=== PATIENT | male | born 1965 | race Caucasian/White ===

== ENCOUNTER 2020-06-04 18:44 | Emergency (ER) | payer BC ==
[2020-06-04 18:53] VITALS: O2SAT 98
[2020-06-04] MEDS ORDERED: Cyclobenzaprine 10 MG PO ONE (19:21)
--- NOTE | 2020-06-04 19:21 | ERPHSYRPT ---
- History of Present Illness Time Seen by Provider: 06/04/20 19:05 Source: patient Exam Limitations: no limitations Patient Subjective Stated Complaint: PT states "I am not sure what I did but I think I got up wrong and twisted my back." Triage Nursing Assessment: Pt presented alert and oriented X 3, skin pwd Pt presented in a picker packer truck, had to be assisted out onto a wheelchair. Any time pt moves, right lower back spasm and pt would grunt and yell. Physician History: This is a 54-year-old white male who has a history of chronic intermittent back issues. Primarily twisting bending lifting causes, on occasion, significant localized pain. Prior to arrival, this afternoon, the patient got up out of a chair and twisted and had immediate sharp pain in the right lumbar area. His back is in a spasm. He did not fall. He has had no acute traumatic injury. He is not on any pain medication and he does not see a pain specialist. Timing/Duration: today Method of Injury: bending, twisted Quality: sharp, other (Spasms) Back Pain Location: lumbar spine, paraspinous muscles Severity of Pain-Max: moderate Severity of Pain-Current: mild Modifying Factors: Improves With: movement (Worsens) Associated Symptoms: muscle spasms (Region of the right paraspinous muscles) Previous symptoms: same symptoms as today Allergies/Adverse Reactions: levofloxacin [From Levaquin] Allergy (Intermediate, Verified 10/07/13 10:31) Rash red blotches Home Medications: Aspirin 81 mg PO DAILY 10/07/13 [History] Burtrum-3 Fatty Acids/Fish Oil [Fish Oil 1,000 mg Softgel] 1 each PO DAILY 10/07/13 [History] Quinapril HCl [Accupril] 20 mg PO DAILY 10/07/13 [History] Simvastatin 40 mg [Zocor 40 mg] 40 mg PO DAILY 10/07/13 [History] Hx Tetanus, Diphtheria Vaccination/Date Given: No Hx Influenza Vaccination/Date Given: Yes Hx Pneumococcal Vaccination/Date Given: No Immunizations Up to Date: Yes Travel Risk - International Travel Have you traveled outside of the country in past 3 weeks: No - Coronavirus Screening Are you exhibiting any of the following symptoms?: No Close contact with a COVID-19 positive Pt in past 14-21 Days: No - Review of Systems Constitutional: No Symptoms Eyes: No Symptoms Ears, Nose, & Throat: No Symptoms Respiratory: No Symptoms Cardiac: No Symptoms Abdominal/Gastrointestinal: No Symptoms Genitourinary Symptoms: No Symptoms Musculoskeletal: Back Pain Skin: No Symptoms Neurological: No Symptoms Psychological: No Symptoms Endocrine: No Symptoms Hematologic/Lymphatic: No Symptoms Immunological/Allergic: No Symptoms All Other Systems: Reviewed and Negative - Past Medical History Pertinent Past Medical History: Yes Neurological History: No Pertinent History ENT History: No Pertinent History Cardiac History: High Cholesterol, Hypertension Respiratory History: No Pertinent History Endocrine Medical History: No Pertinent History Musculoskeletal History: No Pertinent History GI Medical History: No Pertinent History History: No Pertinent History Psycho-Social History: No Pertinent History Male Reproductive Disorders: No Pertinent History - Past Surgical History Past Surgical History: Yes Neuro Surgical History: No Pertinent History Cardiac: No Pertinent History Respiratory: No Pertinent History Gastrointestinal: No Pertinent History Genitourinary: No Pertinent History Musculoskeletal: Other Male Surgical History: No Pertinent History Other Surgical History: sinus surgery - Social History Smoking Status: Never smoker Exposure to second hand smoke: No Drug Use: none Patient Lives Alone: Yes - Nursing Vital Signs Nursing Vital Signs: Initial Vital Signs Temperature 97.4 F 06/04/20 18:44 Pulse Rate 84 06/04/20 18:44 Respiratory Rate 22 06/04/20 18:44 Blood Pressure 180/89 06/04/20 18:44 O2 Sat by Pulse Oximetry 98 06/04/20 18:44 Pain Scale Pain Intensity [Right Lower 8 Back] Pain Intensity 8 - Physical Exam General Appearance: no apparent distress, alert, anxiety Eye Exam: PERRL/EOMI, eyes nml inspection Ears, Nose, Throat Exam: normal ENT inspection, moist mucous membranes Neck Exam: normal inspection, non-tender, supple, full range of motion Respiratory Exam: airway intact, No chest tenderness, No respiratory distress Gastrointestinal Exam: No tenderness Rectal Exam: not done Back Exam: muscle spasm (Right paraspinous muscle level of the lumbar spine), No vertebral tenderness Extremity Exam: normal inspection, normal range of motion, pelvis stable Neurologic Exam: alert, oriented x 3, cooperative, 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 You may also use a heating pad to the area 3 times a day but not directly on your skin at a moderate setting. Follow-up with your primary care doctor for further management of your symptoms. Prescriptions: Carisoprodol 350 mg [Soma 350 mg] 350 mg PO Q8H PRN PRN #10 tablet PRN Reason: Muscle Spasms Prednisone 10 mg [Deltasone 10 mg] 10 mg PO TID #12 tablet
[2020-06-04] MEDS ORDERED: PERCOCET TABLET 5/325MG PO STA (19:22)
[2020-06-04] MEDS ORDERED: PERCOCET TABLET 5/325MG ONE (19:25)
[2020-06-04] MEDS ORDERED: Cyclobenzaprine 10 MG ONE (19:25)
[2020-06-04] MEDS ORDERED: DELTASONE 20 MG ONE (19:25)
[2020-06-04] MEDS ORDERED: Ativan 2 MG/1 ML VIAL IM ONE (20:34)
[2020-06-04] MEDS ORDERED: Ativan 2 MG/1 ML VIAL ONE (20:39)
[2020-06-04] MEDS ORDERED: Lidoderm Patch 5% TOP ONE (21:30)
[2020-06-04] MEDS ORDERED: Lidoderm Patch 5% ONE (21:32)
[2020-06-04 21:50] VITALS: BP 158/87; PULSE 82
[2020-06-05] MEDS ORDERED: DELTASONE 20 MG PO ONE (19:21)
== END 2020-06-04 21:49 | disposition home or self-care (01) ==
LOC: ED 18:44
DX: M54.9 Dorsalgia, unspecified (principal); Z79.899 Other long term (current) drug therapy; X50.9XXA Other and unspecified overexertion or strenuous movements or postures, initial encounter; E78.00 Pure hypercholesterolemia, unspecified; I10 Essential (primary) hypertension
CPT/HCPCS: 96372; 99284; J2060; A9270-GY

== ENCOUNTER 2020-08-23 12:11 | Observation (INO) | payer BC ==
[2020-08-23] MEDS ORDERED: Sodium Chloride 0.9% 1000 ML 1,000 ML IV STA (12:47)
--- NOTE | 2020-08-23 12:54 | ERPHSYRPT ---
- History of Present Illness Time Seen by Provider: 08/23/20 12:38 Source: patient Exam Limitations: no limitations Patient Subjective Stated Complaint: pt states that he has been sick for 2+ weeks and his doctor thinks that it is all associated with his sinuses due to he has continuing issues, has been on antibiotics and steroids Triage Nursing Assessment: Pt c/o cough with thick white sputum, fatigue, body aches, night sweats and chills, hypertensive, denies pain, scheduled for sinus surgery in 2 weeks, doesn't appear to be in any distress Physician History: 54 years old with history of chronic sinus problems presented in the ER with chief complaint of flulike symptoms with cough congestion body aches, nasal d rainage with shortness of breath. Patient report he has been evaluated outpatient and has finished a course of Z-Bryce and steroid but her symptoms are recurring. Reports while taking steroids he had a feeling as if he was improving. Patient was recommended follow-up with ENT at [place]. Patient complains of feeling fatigued tired with no energy and totally drained out with minimal activity with some shortness of breath on exertion. Denies any chest pain but has some soreness because of coughing. Coughing up clear mucus. Timing/Duration: week(s) (2), constant, gradual onset, worse Cough Quality/Degree: moderate, productive cough, sputum Modifying Factors: Worsens With: coughing, exertion Associated Symptoms: chills, chest pain/soreness, cough, facial pain, headache, muscle aches, nasal congestion, nasal drainage, shortness of breath, sinus infection Allergies/Adverse Reactions: levofloxacin [From Levaquin] Allergy (Intermediate, Verified 08/23/20 12:24) Rash red blotches Home Medications: Quinapril HCl [Accupril] 20 mg PO DAILY 10/07/13 [History] Simvastatin 40 mg [Zocor 40 mg] 40 mg PO DAILY 10/07/13 [History] Fluticasone/Vilanterol [Breo Ellipta 100-25 Mcg INH] 1 inh PO UD PRN 08/23/20 [History] Hx Tetanus, Diphtheria Vaccination/Date Given: No Hx Influenza Vaccination/Date Given: Yes Hx Pneumococcal Vaccination/Date Given: No Travel Risk - International Travel Have you traveled outside of the country in past 3 weeks: No - Coronavirus Screening Symptoms: Shortness of Breath, Headaches/Body Aches/Fatigue Close contact with a COVID-19 positive Pt in past 14-21 Days: No - Review of Systems Constitutional: Fatigue, Malaise Eyes: No Symptoms Ears, Nose, & Throat: Nose Congestion, Sinus Drainage, Throat Swelling Respiratory: Cough, Dyspnea Cardiac: No Symptoms Abdominal/Gastrointestinal: No Symptoms Genitourinary Symptoms: No Symptoms Musculoskeletal: Myalgias Skin: No Symptoms Neurological: No Symptoms Psychological: No Symptoms Endocrine: No Symptoms Hematologic/Lymphatic: No Symptoms Immunological/Allergic: No Symptoms - Past Medical History Pertinent Past Medical History: Yes Neurological History: No Pertinent History ENT History: No Pertinent History Cardiac History: High Cholesterol, Hypertension Respiratory History: No Pertinent History Endocrine Medical History: No Pertinent History Musculoskeletal History: No Pertinent History GI Medical History: No Pertinent History History: No Pertinent History Psycho-Social History: No Pertinent History Male Reproductive Disorders: No Pertinent History - Past Surgical History Past Surgical History: Yes Neuro Surgical History: No Pertinent History Cardiac: No Pertinent History Respiratory: No Pertinent History Gastrointestinal: No Pertinent History Genitourinary: No Pertinent History Musculoskeletal: Other Male Surgical History: No Pertinent History Other Surgical History: sinus surgery - Social History Smoking Status: Never smoker Exposure to second hand smoke: No Drug Use: none Patient Lives Alone: Yes - Nursing Vital Signs Nursing Vital Signs: Initial Vital Signs Temperature 98.2 F 08/23/20 12:15 Pulse Rate 78 08/23/20 12:15 Respiratory Rate 17 08/23/20 12:15 Blood Pressure 142/74 08/23/20 12:15 O2 Sat by Pulse Oximetry 96 08/23/20 12:15 Pain Scale Pain Intensity 0 - Physical Exam General Appearance: no apparent distress Eye Exam: PERRL/EOMI, eyes nml inspection Ears, Nose, Throat Exam: pharyngeal erythema Neck Exam: normal inspection, non-tender, supple, full range of motion Respiratory Exam: normal breath sounds (The days 12:29:59), lungs clear Cardiovascular Exam: regular rate/rhythm, normal heart sounds Gastrointestinal/Abdomen Exam: soft, normal bowel sounds, No tenderness Back Exam: normal inspection, normal range of motion Extremity Exam: normal inspection, normal range of motion, pelvis stable Neurologic Exam: alert, oriented x 3, cooperative, 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, normal mood/affect, nml cerebellar function, nml station & gait, sensation nml Skin Exam: normal color SpO2 Interpretation: normal SpO2: 96 O2 Delivery: Room Air - Course Nursing assessment & vital signs reviewed: Yes EKG Interpreted by Me: RATE (72), Sinus Rhythm, NORMAL AXIS, NORMAL INTERVALS, NORMAL QRS Ordered Tests: Active Orders 24 hr Category Date Time Status EKG-ER Only STAT Care 08/23/20 12:47 Active IV Insertion STAT Care 08/23/20 12:47 Active CHEST 1 VIEW (PORTABLE) Stat Exams 08/23/20 13:11 Completed BLOOD CULTURE Stat Lab 08/23/20 13:10 Received CBC W DIFF Stat Lab 08/23/20 12:45 Completed CMP Stat Lab 08/23/20 12:45 Completed D-DIMER QUANTITATIVE Stat Lab 08/23/20 12:45 Completed Lactic Acid Stat Lab 08/23/20 12:47 Ordered MAG [MAGNESIUM] Stat Lab 08/23/20 12:48 Completed TROPONIN Q3H Lab 08/23/20 12:45 Completed TROPONIN Q3H Lab 08/23/20 16:30 Completed TROPONIN Q3H Lab 08/23/20 19:00 Ordered TROPONIN Q3H Lab 08/23/20 22:00 Ordered TROPONIN Q3H Lab 08/24/20 01:00 Ordered UA W/RFX UR CULTURE Stat Lab 08/23/20 15:26 Completed Respiratory Therapy Assessment DAILY RT 08/23/20 14:09 Active Medication Summary Generic Name Dose Route Start Last Admin Trade Name Freq PRN Reason Stop Dose Admin Enoxaparin Sodium 40 mg 08/23/20 18:40 Enoxaparin Sodium SQ 08/23/20 18:41 STAT ONE Doxycycline Hyclate 100 mg/ 100 mls @ 100 mls/hr 08/23/20 22:00 08/23/20 14:41 Dextrose IV 09/22/20 21:59 100 mls/hr Q12HT JULIET Administration Remdesivir 200 mg/ Sodium 250 mls @ 125 mls/hr 08/23/20 18:40 Chloride IV 08/23/20 20:39 ONCE ONE Discontinued Medications Generic Name Dose Route Start Last Admin Trade Name Freq PRN Reason Stop Dose Admin Albuterol/Ipratropium 3 ml 08/23/20 13:56 08/23/20 14:08 Duoneb 0.5-3 Mg/3 Ml Neb IH 08/23/20 13:57 3 ml STAT ONE Administration Albuterol/Ipratropium Confirm 08/23/20 14:03 Duoneb 0.5-3 Mg/3 Ml Neb Administered 08/23/20 14:04 Dose 3 ml IH .STK-MED ONE Dexamethasone Sodium Phosphate 6 mg 08/23/20 13:56 08/23/20 14:15 Decadron 10mg Inj. IV 08/23/20 13:57 6 mg STAT ONE Administration Dexamethasone Sodium Phosphate Confirm 08/23/20 14:13 Decadron 10mg Inj. Administered 08/23/20 14:14 Dose 10 mg .ROUTE .STK-MED ONE Doxycycline Hyclate Confirm 08/23/20 14:39 Vibramycin 100 Mg Administered 08/23/20 14:40 Dose 100 mg IV .STK-MED ONE Sodium Chloride 1,000 mls @ 999 mls/hr 08/23/20 12:47 08/23/20 14:18 Sodium Chloride 0.9% 1000 Ml IV 08/23/20 13:47 Infused .Q1H1M STA Infusion Sodium Chloride Confirm 08/23/20 13:07 Sodium Chloride 0.9% 1000 Ml Administered 08/23/20 13:08 Dose 1,000 mls @ ud .ROUTE .STK-MED ONE Ceftriaxone Sodium/Dextrose 1 g in 50 mls @ 100 mls/hr 08/23/20 13:55 08/23/20 15:15 Rocephin 1 Gm-D5w 50 Ml Bag IV 08/23/20 14:24 Infused STAT STA Infusion Ceftriaxone Sodium/Dextrose Confirm 08/23/20 14:13 Rocephin 1 Gm-D5w 50 Ml Bag Administered 08/23/20 14:14 Dose 1 g in 50 mls @ ud IV .STK-MED ONE Dextrose Confirm 08/23/20 14:40 D5w 100ml Mini Bag 100 Ml Administered 08/23/20 14:41 Dose 100 mls @ ud IV .STK-MED ONE Lab/Rad Data: Laboratory Result Diagrams 08/23/20 12:45 08/23/20 12:45 Laboratory Results 08/23/20 08/23/20 08/23/20 Range/Units 17:43 16:30 15:26 WBC (4.0-10.5) K/mm3 RBC (4.1-5.6) M/mm3 Hgb (12.5-18.0) gm/dl Hct (42-50) % MCV (78-100) fl MCH (26-32) pg MCHC (32-36) g/dl RDW (11.5-14.0) % Plt Count (150-450) K/mm3 MPV (7.5-11.0) fl Gran % (36.0-66.0) % Eos # (Auto) (0-0.5) Absolute Lymphs (auto) (1.0-4.6) Absolute Monos (auto) (0.0-1.3) Lymphocytes % (24.0-44.0) % Monocytes % (0.0-12.0) % Eosinophils % (0.00-5.0) % Basophils % (0.0-0.4) % Absolute Granulocytes (1.4-6.9) Basophils # (0-0.4) D-Dimer (215-500) ng/mL Sodium (137-145) mmol/L Potassium (3.5-5.1) mmol/L Chloride (98-107) mmol/L Carbon Dioxide (22-30) mmol/L Anion Gap (5-15) MEQ/L BUN (9-20) mg/dL Creatinine (0.66-1.25) mg/dL Estimated GFR ML/MIN Glucose (74-106) mg/dL Calcium (8.4-10.2) mg/dL Magnesium (1.6-2.3) mg/dL Total Bilirubin (0.2-1.3) mg/dL AST (17-59) U/L ALT (0-50) U/L Alkaline Phosphatase (38-126) U/L Troponin I < 0.012 (0.000-0.034) ng/mL Serum Total Protein (6.3-8.2) g/dL Albumin (3.5-5.0) g/dL Urine Color YELLOW (YELLOW) Urine Appearance CLEAR (CLEAR) Urine pH 7.0 (5-6) Ur Specific [place] 1.015 (1.005-1.025) Urine Protein NEGATIVE (Negative) Urine Ketones NEGATIVE (NEGATIVE) Urine Blood NEGATIVE (0-5) [place]/ul Urine Nitrite NEGATIVE (NEGATIVE) Urine Bilirubin NEGATIVE (NEGATIVE) Urine Urobilinogen NEGATIVE (0-1) mg/dL Ur Leukocyte Esterase NEGATIVE (NEGATIVE) Urine WBC (Auto) NONE (0-5) /HPF Urine RBC (Auto) NONE (0-2) /HPF U Epithel Cells (Auto) NONE (FEW) /HPF Urine Bacteria (Auto) NONE (NEGATIVE) /HPF Urine Mucus (Auto) SLIGHT (NEGATIVE) /HPF Urine Culture Reflexed NO (NO) Urine Glucose NEGATIVE (NEGATIVE) mg/dL SARS-CoV-2 (PCR) POSITIVE A (NEGATIVE) 08/23/20 08/23/20 08/23/20 Range/Units 12:48 12:45 12:45 WBC (4.0-10.5) K/mm3 RBC (4.1-5.6) M/mm3 Hgb (12.5-18.0) gm/dl Hct (42-50) % MCV (78-100) fl MCH (26-32) pg MCHC (32-36) g/dl RDW (11.5-14.0) % Plt Count (150-450) K/mm3 MPV (7.5-11.0) fl Gran % (36.0-66.0) % Eos # (Auto) (0-0.5) Absolute Lymphs (auto) (1.0-4.6) Absolute Monos (auto) (0.0-1.3) Lymphocytes % (24.0-44.0) % Monocytes % (0.0-12.0) % Eosinophils % (0.00-5.0) % Basophils % (0.0-0.4) % Absolute Granulocytes (1.4-6.9) Basophils # (0-0.4) D-Dimer 290 (215-500) ng/mL Sodium (137-145) mmol/L Potassium (3.5-5.1) mmol/L Chloride (98-107) mmol/L Carbon Dioxide (22-30) mmol/L Anion Gap (5-15) MEQ/L BUN (9-20) mg/dL Creatinine (0.66-1.25) mg/dL Estimated GFR ML/MIN Glucose (74-106) mg/dL Calcium (8.4-10.2) mg/dL Magnesium 2.0 (1.6-2.3) mg/dL Total Bilirubin (0.2-1.3) mg/dL AST (17-59) U/L ALT (0-50) U/L Alkaline Phosphatase (38-126) U/L Troponin I < 0.012 (0.000-0.034) ng/mL Serum Total Protein (6.3-8.2) g/dL Albumin (3.5-5.0) g/dL Urine Color (YELLOW) Urine Appearance (CLEAR) Urine pH (5-6) Ur Specific [place] (1.005-1.025) Urine Protein (Negative) Urine Ketones (NEGATIVE) Urine Blood (0-5) Chandler/ul Urine Nitrite (NEGATIVE) Urine Bilirubin (NEGATIVE) Urine Urobilinogen (0-1) mg/dL Ur Leukocyte Esterase (NEGATIVE) Urine WBC (Auto) (0-5) /HPF Urine RBC (Auto) (0-2) /HPF U Epithel Cells (Auto) (FEW) /HPF Urine Bacteria (Auto) (NEGATIVE) /HPF Urine Mucus (Auto) (NEGATIVE) /HPF Urine Culture Reflexed (NO) Urine Glucose (NEGATIVE) mg/dL SARS-CoV-2 (PCR) (NEGATIVE) 08/23/20 08/23/20 Range/Units 12:45 12:45 WBC 8.8 (4.0-10.5) K/mm3 RBC 4.69 (4.1-5.6) M/mm3 Hgb 13.8 (12.5-18.0) gm/dl Hct 43.1 (42-50) % MCV 91.9 (78-100) fl MCH 29.4 (26-32) pg MCHC 32.0 (32-36) g/dl RDW 13.1 (11.5-14.0) % Plt Count 333 (150-450) K/mm3 MPV 10.1 (7.5-11.0) fl Gran % 71.3 H (36.0-66.0) % Eos # (Auto) 0.09 (0-0.5) Absolute Lymphs (auto) 1.32 (1.0-4.6) Absolute Monos (auto) 1.12 (0.0-1.3) Lymphocytes % 14.9 L (24.0-44.0) % Monocytes % 12.7 H (0.0-12.0) % Eosinophils % 1.0 (0.00-5.0) % Basophils % 0.1 (0.0-0.4) % Absolute Granulocytes 6.30 (1.4-6.9) Basophils # 0.01 (0-0.4) D-Dimer (215-500) ng/mL Sodium 140 (137-145) mmol/L Potassium 4.2 (3.5-5.1) mmol/L Chloride 104 (98-107) mmol/L Carbon Dioxide 25 (22-30) mmol/L Anion Gap 15.1 H (5-15) MEQ/L BUN 20 (9-20) mg/dL Creatinine 0.78 (0.66-1.25) mg/dL Estimated GFR > 60.0 ML/MIN Glucose 84 (74-106) mg/dL Calcium 9.1 (8.4-10.2) mg/dL Magnesium (1.6-2.3) mg/dL Total Bilirubin 1.00 (0.2-1.3) mg/dL AST 45 (17-59) U/L ALT 49 (0-50) U/L Alkaline Phosphatase 89 (38-126) U/L Troponin I (0.000-0.034) ng/mL Serum Total Protein 7.1 (6.3-8.2) g/dL Albumin 4.0 (3.5-5.0) g/dL Urine Color (YELLOW) Urine Appearance (CLEAR) Urine pH (5-6) Ur Specific [place] (1.005-1.025) Urine Protein (Negative) Urine Ketones (NEGATIVE) Urine Blood (0-5) [place]/ul Urine Nitrite (NEGATIVE) Urine Bilirubin (NEGATIVE) Urine Urobilinogen (0-1) mg/dL Ur Leukocyte Esterase (NEGATIVE) Urine WBC (Auto) (0-5) /HPF Urine RBC (Auto) (0-2) /HPF U Epithel Cells (Auto) (FEW) /HPF Urine Bacteria (Auto) (NEGATIVE) /HPF Urine Mucus (Auto) (NEGATIVE) /HPF Urine Culture Reflexed (NO) Urine Glucose (NEGATIVE) mg/dL SARS-CoV-2 (PCR) (NEGATIVE) - Progress Progress: improved, re-examined Air Movement: fair Progress Note: 08/23/20 18:[address] Goetz and patient is admitted. Recommended starting on remdesivir and Lovenox prophylactic dose. Line discussed with patient and he is agreeable with admission. Blood Culture(s) Obtained: Yes Antibiotics given: Yes Discussed with : Daniel Will see patient in: hospital (observation) Counseled pt/family regarding: lab results, diagnosis, rad results - Departure Departure Disposition: Observation Clinical Impression: COVID-19 Bilateral pneumonia Qualifiers: Pneumonia type: due to unspecified organism Lung location: unspecified part of lung Qualified Code(s): J18.9 - Pneumonia, unspecified organism Condition: Stable Critical Care Time: No Referrals: CAYETANO NATH MD [Primary Care Provider] -
[2020-08-23 13:00] LABS: BASOPHIL % 0.1 % (0.0-0.4); Basophil (Absolute #) 0.01 (0-0.4); Eosinophil (Absolute #) 0.09 (0-0.5); Hematocrit 43.1 % (42-50); Hemoglobin 13.8 gm/dl (12.5-18.0); Lymphocyte (Absolute #) 1.32 (1.0-4.6); Lymphocytes % 14.9 % (24.0-44.0); Mean Cell Volume 91.9 fl (78-100); Mean Corpuscular Hemoglobin 29.4 pg (26-32); Mean Platelet Volume 10.1 fl (7.5-11.0); Monocyte (Absolute #) 1.12 (0.0-1.3); Monocytes % 12.7 % (0.0-12.0); Neutrophil % 71.3 % (36.0-66.0); Platelet Count 333 K/mm3 (150-450); Red Blood Count 4.69 M/mm3 (4.1-5.6); Red Cell Distribution Width 13.1 % (11.5-14.0); White Blood Count 8.8 K/mm3 (4.0-10.5)
[2020-08-23 13:06] LABS: ALKALINE PHOSPHATASE 89 U/L (38-126); ANION GAP 15.1 MEQ/L (5-15); BLOOD UREA NITROGEN 20 mg/dL (9-20); CHLORIDE 104 mmol/L (98-107); Calcium 9.1 mg/dL (8.4-10.2); Carbon Dioxide 25 mmol/L (22-30); Creatinine 1 0.78 mg/dL (0.66-1.25); EST GLOMERULAR FILTRATION RATE > 60.0 ML/MIN; Glucose 84 mg/dL (74-106); Potassium 4.2 mmol/L (3.5-5.1); SGOT/AST 45 U/L (17-59); SGPT/ALT 49 U/L (0-50); SODIUM 140 mmol/L (137-145); Total Protein 7.1 g/dL (6.3-8.2)
[2020-08-23] MEDS ORDERED: Sodium Chloride 0.9% 1000 ML 1,000 ML ONE ×2 (13:07→21:12)
[2020-08-23] MEDS ORDERED: ROCEPHIN 1 Gm-D5w 50 ml Bag** 1 G/50 ML IVPB IV STA (13:55)
[2020-08-23] MEDS ORDERED: DUONEB 0.5-3 MG/3 ml Neb IH ONE ×2 (13:56→14:03)
[2020-08-23] MEDS ORDERED: DECADRON 10MG INJ. IV ONE (13:56)
[2020-08-23] MEDS ORDERED: ROCEPHIN 1 Gm-D5w 50 ml Bag** 1 G/50 ML IVPB IV ONE (14:13)
[2020-08-23] MEDS ORDERED: DECADRON 10MG INJ. ONE (14:13)
[2020-08-23] MEDS ORDERED: VIBRAMYCIN 100 MG IV ONE ×2 (14:39→23:59)
[2020-08-23] MEDS ORDERED: D5w 100ML Mini Bag 100 ML 100 ML IV ONE (14:40)
[2020-08-23 16:15] LABS: Appearance CLEAR (CLEAR); Bilirubin NEGATIVE (NEGATIVE); Blood NEGATIVE Ery/ul (0-5); Glucose NEGATIVE (NEGATIVE); Ketones NEGATIVE (NEGATIVE); Leukocyte Esterase NEGATIVE (NEGATIVE); Mucus SLIGHT /HPF (NEGATIVE); Nitrite NEGATIVE (NEGATIVE); Protein,Urine Dip NEGATIVE (Negative); Specific Gravity 1.015 (1.005-1.025); Urobilinogen NEGATIVE mg/dL (0-1)
--- NOTE | 2020-08-23 18:18 | XRAY ---
Indication: Cough. Suspect COVID 19. Comparison: None Portable chest demonstrates subtle patchy bilateral airspace disease without consolidation/large effusion. Remaining heart and bony thorax unremarkable.
[2020-08-23] MEDS ORDERED: REMDESIVIR 200 MG in Sodium Chloride 0.9% 250 ML 250 ML IV ONE (18:40)
[2020-08-23] MEDS ORDERED: ENOXAPARIN SODIUM SQ ONE ×2 (18:40→21:11)
[2020-08-23] MEDS ORDERED: VENTOLIN COMMON CANISTER IH SCH (19:13)
[2020-08-23] MEDS ORDERED: HUMALOG SQ PRN (19:13)
[2020-08-23] MEDS ORDERED: TYLENOL 325 MG PO PRN (19:13)
[2020-08-23] MEDS ORDERED: REMDESIVIR 100 MG in Sodium Chloride 0.9% 100 ML IVPB 100 ML IV SCH (19:13)
[2020-08-23] MEDS ORDERED: REMDESIVIR IV ONE (21:16)
[2020-08-23] MEDS ORDERED: Sodium Chloride 0.9% 250 ML 250 ML IV ONE (21:16)
[2020-08-23] MEDS ORDERED: REMDESIVIR 200 MG in Sodium Chloride 0.9% 500 ML 250 ML IV SCH (22:00)
[2020-08-23] MEDS ORDERED: VIBRAMYCIN 100 MG*** 100 MG in Dextrose 5%/Water IV Soln. 100ML PLUS BAG 100 ML IV SCH (22:00)
[2020-08-23] MEDS ORDERED: Sodium Chloride 0.9% 1000 ML 1,000 ML IV SCH (22:30)
[2020-08-24] MEDS ORDERED: D5w 100ML Mini Bag 100 ML 100 ML IV ONE (00:07)
[2020-08-24] MEDS: VIBRAMYCIN 100 MG*** 100 MG in Dextrose 5%/Water IV Soln. 100ML PLUS BAG 100 ML IV SCH ×2 (00:16→09:18)
[2020-08-24 05:28] LABS: Absolute Neutrophil Ct (ANC) 6.06 (1.4-6.9); BASOPHIL % 0.1 % (0.0-0.4); Basophil (Absolute #) 0.01 (0-0.4); Eosinophil (Absolute #) 0 (0-0.5); Hematocrit 40.4 % (42-50); Lymphocytes % 10.7 % (24.0-44.0); Mean Corpuscular Hemoglobin 29.3 pg (26-32); Mean Corpuscular Hgb Concent. 32.2 g/dl (32-36); Mean Platelet Volume 9.5 fl (7.5-11.0); Neutrophil % 81.2 % (36.0-66.0); Platelet Count 331 K/mm3 (150-450); Red Blood Count 4.44 M/mm3 (4.1-5.6); Red Cell Distribution Width 12.9 % (11.5-14.0); White Blood Count 7.5 K/mm3 (4.0-10.5)
[2020-08-24 05:43] LABS: ALBUMIN 3.7 g/dL (3.5-5.0); ALKALINE PHOSPHATASE 88 U/L (38-126); ANION GAP 11.6 MEQ/L (5-15); BLOOD UREA NITROGEN 18 mg/dL (9-20); CHLORIDE 106 mmol/L (98-107); Carbon Dioxide 26 mmol/L (22-30); Creatinine 1 0.74 mg/dL (0.66-1.25); EST GLOMERULAR FILTRATION RATE > 60.0 ML/MIN; Glucose 140 mg/dL (74-106); Potassium 4.4 mmol/L (3.5-5.1); SGOT/AST 25 U/L (17-59); SGPT/ALT 43 U/L (0-50); SODIUM 138 mmol/L (137-145)
[2020-08-24 05:53] LABS: INR 1.27 (0.8-3.0); PROTIME 14.4 SECONDS (8.83-12.87)
[2020-08-24 08:06] VITALS: BP 124/73
--- NOTE | 2020-08-24 08:54 | PCM.SSS ---
History of Present Illness - Chief Complaint Chief Complaint: covid History of Present Illness: is a 54 year old male who came to the ER yesterday, he states he was feeling dehydrated, his urine was concentrated and he has been sick for 2-3 weeks. He has had sinus congestion and drainage, was actually treated with a zpak as he has chronic sinusitis and is actually scheduled for a sinus surgery later this month. He had chills and subjective fever about a week or a week and a half ago, he has some mild cough. no vomiting, no diarrhea, no shortness of breath. his taste and smell are intact. - Review of Systems Constitutional: No Fever, No Chills Respiratory: No Cough, No Short Of Breath Cardiac: No Chest Pain, No Edema, No Syncope Abdominal/Gastrointestinal: No Abdominal Pain, No Nausea, No Vomiting, No Diarrhea All Other Systems: Reviewed and Negative Medications & Allergies Home Medications: Home Medication List Quinapril HCl [Accupril] 20 mg PO DAILY 10/07/13 [History Confirmed 08/23/20] Simvastatin 40 mg [Zocor 40 mg] 40 mg PO DAILY 10/07/13 [History Confirmed 08/23/20] Fluticasone/Vilanterol [Breo Ellipta 100-25 Mcg INH] 1 inh PO UD PRN 08/23/20 [History Confirmed 08/23/20] Dexamethasone 4 mg PO BID #10 tablet 08/24/20 [Rx] Allergies/Adverse Reactions: Allergies Allergy/AdvReac Type Severity Reaction Status Date / Time levofloxacin [From Levaquin] Allergy Intermediate Rash Verified 08/23/20 12:24 - Past Medical History Past Medical History: Yes Neurological History: No Pertinent History ENT History: No Pertinent History Cardiac History: High Cholesterol, Hypertension Respiratory History: Asthma Endocrine Medical History: No Pertinent History Musculoskelatal History: No Pertinent History GI Medical History: No Pertinent History History: No Pertinent History Pyscho-Social History: No Pertinent History Male Reproductive Disorders: No Pertinent History - Past Surgical History Past Surgical History: Yes Neuro Surgical History: No Pertinent History Cardiac History: No Pertinent History Respiratory Surgery: No Pertinent History GI Surgical History: No Pertinent History Genitourinary Surgical Hx: No Pertinent History Musculskeletal Surgical Hx: Other Male Surgical History: No Pertinent History Other Surgical History: sinus surgery - Social History Smoking Status: Never smoker Exposure to second hand smoke: No Alcohol: None Drug Use: none - Physical Exam Vital Signs: Vital Signs - 24 hr Temp Pulse Resp BP Pulse Ox 08/24/20 08:33 20 08/24/20 08:00 98.1 F 54 L 20 124/73 96 08/24/20 07:04 74 16 95 08/24/20 06:50 18 08/24/20 05:45 97.6 F 67 18 120/62 96 08/24/20 05:00 14 08/24/20 04:00 42 L 14 95 08/24/20 03:00 16 08/24/20 01:59 44 L 16 91 L 08/24/20 01:00 12 08/24/20 00:00 97.5 F 63 12 105/58 08/23/20 22:45 14 08/23/20 22:00 98.0 F 55 L 14 117/69 95 08/23/20 20:58 16 08/23/20 20:15 98.3 F 68 14 139/77 94 L 08/23/20 19:59 73 12 95 08/23/20 19:14 12 08/23/20 19:13 98.3 F 68 14 139/77 94 L 08/23/20 18:42 96 08/23/20 18:04 81 20 139/62 94 L 08/23/20 17:02 82 20 128/73 96 08/23/20 16:19 77 20 128/73 95 08/23/20 15:29 79 25 H 144/85 97 08/23/20 14:22 79 16 98 08/23/20 14:03 71 25 H 142/74 98 08/23/20 13:15 75 23 142/74 98 08/23/20 12:15 98.2 F 78 15 142/74 62 L General Appearance: no apparent distress, alert Eye Exam: PERRL/EOMI, eyes nml inspection Respiratory Exam: normal breath sounds, lungs clear, No respiratory distress Cardiovascular Exam: regular rate/rhythm, normal heart sounds, normal peripheral pulses Gastrointestinal/Abdomen Exam: soft, normal bowel sounds, No tenderness, No mass Extremity Exam: normal inspection, normal range of motion, pelvis stable Skin Exam: normal color, warm, dry, No rash Results - Labs Lab/Micro Results: Lab Results-Last 24 Hours 08/23/20 08/23/2021 Range/Units 12:45 12:45 12:45 WBC 8.8 (4.0-10.5) K/mm3 RBC 4.69 (4.1-5.6) M/mm3 Hgb 13.8 (12.5-18.0) gm/dl Hct 43.1 (42-50) % MCV 91.9 (78-100) fl MCH 29.4 (26-32) pg MCHC 32.0 (32-36) g/dl RDW 13.1 (11.5-14.0) % Plt Count 333 (150-450) K/mm3 MPV 10.1 (7.5-11.0) fl Gran % 71.3 H (36.0-66.0) % Eos # (Auto) 0.09 (0-0.5) Absolute Lymphs (auto) 1.32 (1.0-4.6) Absolute Monos (auto) 1.12 (0.0-1.3) Lymphocytes % 14.9 L (24.0-44.0) % Monocytes % 12.7 H (0.0-12.0) % Eosinophils % 1.0 (0.00-5.0) % Basophils % 0.1 (0.0-0.4) % Absolute Granulocytes 6.30 (1.4-6.9) Basophils # 0.01 (0-0.4) PT (8.83-12.87) SECONDS INR (0.8-3.0) D-Dimer (215-500) ng/mL Sodium 140 (137-145) mmol/L Potassium 4.2 (3.5-5.1) mmol/L Chloride 104 (98-107) mmol/L Carbon Dioxide 25 (22-30) mmol/L Anion Gap 15.1 H (5-15) MEQ/L BUN 20 (9-20) mg/dL Creatinine 0.78 (0.66-1.25) mg/dL Estimated GFR > 60.0 ML/MIN Glucose 84 (74-106) mg/dL Calcium 9.1 (8.4-10.2) mg/dL Magnesium (1.6-2.3) mg/dL Total Bilirubin 1.00 (0.2-1.3) mg/dL AST 45 (17-59) U/L ALT 49 (0-50) U/L Alkaline Phosphatase 89 (38-126) U/L Troponin I < 0.012 (0.000-0.034) ng/mL Serum Total Protein 7.1 (6.3-8.2) g/dL Albumin 4.0 (3.5-5.0) g/dL Urine Color (YELLOW) Urine Appearance (CLEAR) Urine pH (5-6) Ur Specific Willcox (1.005-1.025) Urine Protein (Negative) Urine Ketones (NEGATIVE) Urine Blood (0-5) Chandler/ul Urine Nitrite (NEGATIVE) Urine Bilirubin (NEGATIVE) Urine Urobilinogen (0-1) mg/dL Ur Leukocyte Esterase (NEGATIVE) Urine WBC (Auto) (0-5) /HPF Urine RBC (Auto) (0-2) /HPF U Epithel Cells (Auto) (FEW) /HPF Urine Bacteria (Auto) (NEGATIVE) /HPF Urine Mucus (Auto) (NEGATIVE) /HPF Urine Culture Reflexed (NO) Urine Glucose (NEGATIVE) mg/dL SARS-CoV-2 (PCR) (NEGATIVE) 08/23/20 08/23/20 08/23/20 Range/Units 12:45 12:48 15:26 WBC (4.0-10.5) K/mm3 RBC (4.1-5.6) M/mm3 Hgb (12.5-18.0) gm/dl Hct (42-50) % MCV (78-100) fl MCH (26-32) pg MCHC (32-36) g/dl RDW (11.5-14.0) % Plt Count (150-450) K/mm3 MPV (7.5-11.0) fl Gran % (36.0-66.0) % Eos # (Auto) (0-0.5) Absolute Lymphs (auto) (1.0-4.6) Absolute Monos (auto) (0.0-1.3) Lymphocytes % (24.0-44.0) % Monocytes % (0.0-12.0) % Eosinophils % (0.00-5.0) % Basophils % (0.0-0.4) % Absolute Granulocytes (1.4-6.9) Basophils # (0-0.4) PT (8.83-12.87) SECONDS INR (0.8-3.0) D-Dimer 290 (215-500) ng/mL Sodium (137-145) mmol/L Potassium (3.5-5.1) mmol/L Chloride (98-107) mmol/L Carbon Dioxide (22-30) mmol/L Anion Gap (5-15) MEQ/L BUN (9-20) mg/dL Creatinine (0.66-1.25) mg/dL Estimated GFR ML/MIN Glucose (74-106) mg/dL Calcium (8.4-10.2) mg/dL Magnesium 2.0 (1.6-2.3) mg/dL Total Bilirubin (0.2-1.3) mg/dL AST (17-59) U/L ALT (0-50) U/L Alkaline Phosphatase (38-126) U/L Troponin I (0.000-0.034) ng/mL Serum Total Protein (6.3-8.2) g/dL Albumin (3.5-5.0) g/dL Urine Color YELLOW (YELLOW) Urine Appearance CLEAR (CLEAR) Urine pH 7.0 (5-6) Ur Specific [place]cox 1.015 (1.005-1.025) Urine Protein NEGATIVE (Negative) Urine Ketones NEGATIVE (NEGATIVE) Urine Blood NEGATIVE (0-5) Chandler/ul Urine Nitrite NEGATIVE (NEGATIVE) Urine Bilirubin NEGATIVE (NEGATIVE) Urine Urobilinogen NEGATIVE (0-1) mg/dL Ur Leukocyte Esterase NEGATIVE (NEGATIVE) Urine WBC (Auto) NONE (0-5) /HPF Urine RBC (Auto) NONE (0-2) /HPF U Epithel Cells (Auto) NONE (FEW) /HPF Urine Bacteria (Auto) NONE (NEGATIVE) /HPF Urine Mucus (Auto) SLIGHT (NEGATIVE) /HPF Urine Culture Reflexed NO (NO) Urine Glucose NEGATIVE (NEGATIVE) mg/dL SARS-CoV-2 (PCR) (NEGATIVE) 08/23/20 08/23/20 08/23/20 Range/Units 16:30 17:43 19:25 WBC (4.0-10.5) K/mm3 RBC (4.1-5.6) M/mm3 Hgb (12.5-18.0) gm/dl Hct (42-50) % MCV (78-100) fl MCH (26-32) pg MCHC (32-36) g/dl RDW (11.5-14.0) % Plt Count (150-450) K/mm3 MPV (7.5-11.0) fl Gran % (36.0-66.0) % Eos # (Auto) (0-0.5) Absolute Lymphs (auto) (1.0-4.6) Absolute Monos (auto) (0.0-1.3) Lymphocytes % (24.0-44.0) % Monocytes % (0.0-12.0) % Eosinophils % (0.00-5.0) % Basophils % (0.0-0.4) % Absolute Granulocytes (1.4-6.9) Basophils # (0-0.4) PT (8.83-12.87) SECONDS INR (0.8-3.0) D-Dimer (215-500) ng/mL Sodium (137-145) mmol/L Potassium (3.5-5.1) mmol/L Chloride (98-107) mmol/L Carbon Dioxide (22-30) mmol/L Anion Gap (5-15) MEQ/L BUN (9-20) mg/dL Creatinine (0.66-1.25) mg/dL Estimated GFR ML/MIN Glucose (74-106) mg/dL Calcium (8.4-10.2) mg/dL Magnesium (1.6-2.3) mg/dL Total Bilirubin (0.2-1.3) mg/dL AST (17-59) U/L ALT (0-50) U/L Alkaline Phosphatase (38-126) U/L Troponin I < 0.012 < 0.012 (0.000-0.034) ng/mL Serum Total Protein (6.3-8.2) g/dL Albumin (3.5-5.0) g/dL Urine Color (YELLOW) Urine Appearance (CLEAR) Urine pH (5-6) Ur Specific [place]cox (1.005-1.025) Urine Protein (Negative) Urine Ketones (NEGATIVE) Urine Blood (0-5) Chandler/ul Urine Nitrite (NEGATIVE) Urine Bilirubin (NEGATIVE) Urine Urobilinogen (0-1) mg/dL Ur Leukocyte Esterase (NEGATIVE) Urine WBC (Auto) (0-5) /HPF Urine RBC (Auto) (0-2) /HPF U Epithel Cells (Auto) (FEW) /HPF Urine Bacteria (Auto) (NEGATIVE) /HPF Urine Mucus (Auto) (NEGATIVE) /HPF Urine Culture Reflexed (NO) Urine Glucose (NEGATIVE) mg/dL SARS-CoV-2 (PCR) POSITIVE A (NEGATIVE) 08/24/20 08/24/20 08/24/20 Range/Units 05:05 05:05 05:05 WBC 7.5 (4.0-10.5) K/mm3 RBC 4.44 (4.1-5.6) M/mm3 Hgb 13.0 (12.5-18.0) gm/dl Hct 40.4 L (42-50) % MCV 91.0 (78-100) fl MCH 29.3 (26-32) pg MCHC 32.2 (32-36) g/dl RDW 12.9 (11.5-14.0) % Plt Count 331 (150-450) K/mm3 MPV 9.5 (7.5-11.0) fl Gran % 81.2 H (36.0-66.0) % Eos # (Auto) 0 (0-0.5) Absolute Lymphs (auto) 0.80 L (1.0-4.6) Absolute Monos (auto) 0.60 (0.0-1.3) Lymphocytes % 10.7 L (24.0-44.0) % Monocytes % 8.0 (0.0-12.0) % Eosinophils % 0.0 (0.00-5.0) % Basophils % 0.1 (0.0-0.4) % Absolute Granulocytes 6.06 (1.4-6.9) Basophils # 0.01 (0-0.4) PT 14.4 H (8.83-12.87) SECONDS INR 1.27 (0.8-3.0) D-Dimer 250 (215-500) ng/mL Sodium 138 (137-145) mmol/L Potassium 4.4 (3.5-5.1) mmol/L Chloride 106 (98-107) mmol/L Carbon Dioxide 26 (22-30) mmol/L Anion Gap 11.6 (5-15) MEQ/L BUN 18 (9-20) mg/dL Creatinine 0.74 (0.66-1.25) mg/dL Estimated GFR > 60.0 ML/MIN Glucose 140 H (74-106) mg/dL Calcium 9.0 (8.4-10.2) mg/dL Magnesium (1.6-2.3) mg/dL Total Bilirubin 0.40 (0.2-1.3) mg/dL AST 25 (17-59) U/L ALT 43 (0-50) U/L Alkaline Phosphatase 88 (38-126) U/L Troponin I (0.000-0.034) ng/mL Serum Total Protein 7.0 (6.3-8.2) g/dL Albumin 3.7 (3.5-5.0) g/dL Urine Color (YELLOW) Urine Appearance (CLEAR) Urine pH (5-6) Ur Specific [place]cox (1.005-1.025) Urine Protein (Negative) Urine Ketones (NEGATIVE) Urine Blood (0-5) Chandler/ul Urine Nitrite (NEGATIVE) Urine Bilirubin (NEGATIVE) Urine Urobilinogen (0-1) mg/dL Ur Leukocyte Esterase (NEGATIVE) Urine WBC (Auto) (0-5) /HPF Urine RBC (Auto) (0-2) /HPF U Epithel Cells (Auto) (FEW) /HPF Urine Bacteria (Auto) (NEGATIVE) /HPF Urine Mucus (Auto) (NEGATIVE) /HPF Urine Culture Reflexed (NO) Urine Glucose (NEGATIVE) mg/dL SARS-CoV-2 (PCR) (NEGATIVE) - Radiology Impressions Radiology Exams & Impressions: Radiology Procedures Category Date Time Status CHEST 1 VIEW (PORTABLE) Stat Exams 08/23/20 13:11 Completed - Other Procedures and Tests Respiratory Therapy 08/23/20 19:58 Respiratory Therapy Assessment DAILY 08/24/20 06:07 Respiratory MDI UD Assessment/Plan (1) COVID-19 Current Visit: Yes Status: Acute Assessment & Plan: likely he is toward the end of his disease course based on history. has no respiratory complaints and minimal airspace disease on xray. has no fever, no co ugh and no oxygen requirement. he is alert, oriented and has normal work of breathing and actually has no complaints today. since we are uncertain about the onset of his symptoms I have advised a 10 day quarantine period starting on 08/23 the date of his positive test just to be sure, he agrees and will need to isolate and be off work for this time. I advised if he develops any shortness of breath, confusion, new complaints he should return to the ER, he voices understanding. I do not feel he needs any other specific therapy, will continue dexamethasone for 5 days but otherwise symptomatic treatment currently. Code(s): U07.1 - COVID-19 Hospital Summary - Vitals & Intake/Output Vital Signs: Vital Signs Temperature 98.1 F 08/24/20 08:00 Pulse Rate 54 L 08/24/20 08:00 Respiratory Rate 20 08/24/20 08:33 Blood Pressure 124/73 08/24/20 08:00 O2 Sat by Pulse Oximetry 96 08/24/20 08:00 Intake & Output: Intake & Output 08/21/20 08/22/20 08/23/20 08/24/20 11:59 11:59 11:59 11:59 Intake Total 810 Balance 810 Weight 86 kg - Lab Result Diagrams: 08/24/20 05:05 08/24/20 05:05 Lab Results-Last 24 Hrs: Lab Results-Last 24 Hours 08/23/20 08/23/20 08/23/20 Range/Units 12:45 12:45 12:45 WBC 8.8 (4.0-10.5) K/mm3 RBC 4.69 (4.1-5.6) M/mm3 Hgb 13.8 (12.5-18.0) gm/dl Hct 43.1 (42-50) % MCV 91.9 (78-100) fl MCH 29.4 (26-32) pg MCHC 32.0 (32-36) g/dl RDW 13.1 (11.5-14.0) % Plt Count 333 (150-450) K/mm3 MPV 10.1 (7.5-11.0) fl Gran % 71.3 H (36.0-66.0) % Eos # (Auto) 0.09 (0-0.5) Absolute Lymphs (auto) 1.32 (1.0-4.6) Absolute Monos (auto) 1.12 (0.0-1.3) Lymphocytes % 14.9 L (24.0-44.0) % Monocytes % 12.7 H (0.0-12.0) % Eosinophils % 1.0 (0.00-5.0) % Basophils % 0.1 (0.0-0.4) % Absolute Granulocytes 6.30 (1.4-6.9) Basophils # 0.01 (0-0.4) PT (8.83-12.87) SECONDS INR (0.8-3.0) D-Dimer (215-500) ng/mL Sodium 140 (137-145) mmol/L Potassium 4.2 (3.5-5.1) mmol/L Chloride 104 (98-107) mmol/L Carbon Dioxide 25 (22-30) mmol/L Anion Gap 15.1 H (5-15) MEQ/L BUN 20 (9-20) mg/dL Creatinine 0.78 (0.66-1.25) mg/dL Estimated GFR > 60.0 ML/MIN Glucose 84 (74-106) mg/dL Calcium 9.1 (8.4-10.2) mg/dL Magnesium (1.6-2.3) mg/dL Total Bilirubin 1.00 (0.2-1.3) mg/dL AST 45 (17-59) U/L ALT 49 (0-50) U/L Alkaline Phosphatase 89 (38-126) U/L Troponin I < 0.012 (0.000-0.034) ng/mL Serum Total Protein 7.1 (6.3-8.2) g/dL Albumin 4.0 (3.5-5.0) g/dL Urine Color (YELLOW) Urine Appearance (CLEAR) Urine pH (5-6) Ur Specific Willcox (1.005-1.025) Urine Protein (Negative) Urine Ketones (NEGATIVE) Urine Blood (0-5) Chandler/ul Urine Nitrite (NEGATIVE) Urine Bilirubin (NEGATIVE) Urine Urobilinogen (0-1) mg/dL Ur Leukocyte Esterase (NEGATIVE) Urine WBC (Auto) (0-5) /HPF Urine RBC (Auto) (0-2) /HPF U Epithel Cells (Auto) (FEW) /HPF Urine Bacteria (Auto) (NEGATIVE) /HPF Urine Mucus (Auto) (NEGATIVE) /HPF Urine Culture Reflexed (NO) Urine Glucose (NEGATIVE) mg/dL SARS-CoV-2 (PCR) (NEGATIVE) 08/23/20 08/23/20 08/23/20 Range/Units 12:45 12:48 15:26 WBC (4.0-10.5) K/mm3 RBC (4.1-5.6) M/mm3 Hgb (12.5-18.0) gm/dl Hct (42-50) % MCV (78-100) fl MCH (26-32) pg MCHC (32-36) g/dl RDW (11.5-14.0) % Plt Count (150-450) K/mm3 MPV (7.5-11.0) fl Gran % (36.0-66.0) % Eos # (Auto) (0-0.5) Absolute Lymphs (auto) (1.0-4.6) Absolute Monos (auto) (0.0-1.3) Lymphocytes % (24.0-44.0) % Monocytes % (0.0-12.0) % Eosinophils % (0.00-5.0) % Basophils % (0.0-0.4) % Absolute Granulocytes (1.4-6.9) Basophils # (0-0.4) PT (8.83-12.87) SECONDS INR (0.8-3.0) D-Dimer 290 (215-500) ng/mL Sodium (137-145) mmol/L Potassium (3.5-5.1) mmol/L Chloride (98-107) mmol/L Carbon Dioxide (22-30) mmol/L Anion Gap (5-15) MEQ/L BUN (9-20) mg/dL Creatinine (0.66-1.25) mg/dL Estimated GFR ML/MIN Glucose (74-106) mg/dL Calcium (8.4-10.2) mg/dL Magnesium 2.0 (1.6-2.3) mg/dL Total Bilirubin (0.2-1.3) mg/dL AST (17-59) U/L ALT (0-50) U/L Alkaline Phosphatase (38-126) U/L Troponin I (0.000-0.034) ng/mL Serum Total Protein (6.3-8.2) g/dL Albumin (3.5-5.0) g/dL Urine Color YELLOW (YELLOW) Urine Appearance CLEAR (CLEAR) Urine pH 7.0 (5-6) Ur Specific Willcox 1.015 (1.005-1.025) Urine Protein NEGATIVE (Negative) Urine Ketones NEGATIVE (NEGATIVE) Urine Blood NEGATIVE (0-5) Chandler/ul Urine Nitrite NEGATIVE (NEGATIVE) Urine Bilirubin NEGATIVE (NEGATIVE) Urine Urobilinogen NEGATIVE (0-1) mg/dL Ur Leukocyte Esterase NEGATIVE (NEGATIVE) Urine WBC (Auto) NONE (0-5) /HPF Urine RBC (Auto) NONE (0-2) /HPF U Epithel Cells (Auto) NONE (FEW) /HPF Urine Bacteria (Auto) NONE (NEGATIVE) /HPF Urine Mucus (Auto) SLIGHT (NEGATIVE) /HPF Urine Culture Reflexed NO (NO) Urine Glucose NEGATIVE (NEGATIVE) mg/dL SARS-CoV-2 (PCR) (NEGATIVE) 08/23/20 08/23/20 08/23/20 Range/Units 16:30 17:43 19:25 WBC (4.0-10.5) K/mm3 RBC (4.1-5.6) M/mm3 Hgb (12.5-18.0) gm/dl Hct (42-50) % MCV (78-100) fl MCH (26-32) pg MCHC (32-36) g/dl RDW (11.5-14.0) % Plt Count (150-450) K/mm3 MPV (7.5-11.0) fl Gran % (36.0-66.0) % Eos # (Auto) (0-0.5) Absolute Lymphs (auto) (1.0-4.6) Absolute Monos (auto) (0.0-1.3) Lymphocytes % (24.0-44.0) % Monocytes % (0.0-12.0) % Eosinophils % (0.00-5.0) % Basophils % (0.0-0.4) % Absolute Granulocytes (1.4-6.9) Basophils # (0-0.4) PT (8.83-12.87) SECONDS INR (0.8-3.0) D-Dimer (215-500) ng/mL Sodium (137-145) mmol/L Potassium (3.5-5.1) mmol/L Chloride (98-107) mmol/L Carbon Dioxide (22-30) mmol/L Anion Gap (5-15) MEQ/L BUN (9-20) mg/dL Creatinine (0.66-1.25) mg/dL Estimated GFR ML/MIN Glucose (74-106) mg/dL Calcium (8.4-10.2) mg/dL Magnesium (1.6-2.3) mg/dL Total Bilirubin (0.2-1.3) mg/dL AST (17-59) U/L ALT (0-50) U/L Alkaline Phosphatase (38-126) U/L Troponin I < 0.012 < 0.012 (0.000-0.034) ng/mL Serum Total Protein (6.3-8.2) g/dL Albumin (3.5-5.0) g/dL Urine Color (YELLOW) Urine Appearance (CLEAR) Urine pH (5-6) Ur Specific [place]cox (1.005-1.025) Urine Protein (Negative) Urine Ketones (NEGATIVE) Urine Blood (0-5) Chandler/ul Urine Nitrite (NEGATIVE) Urine Bilirubin (NEGATIVE) Urine Urobilinogen (0-1) mg/dL Ur Leukocyte Esterase (NEGATIVE) Urine WBC (Auto) (0-5) /HPF Urine RBC (Auto) (0-2) /HPF U Epithel Cells (Auto) (FEW) /HPF Urine Bacteria (Auto) (NEGATIVE) /HPF Urine Mucus (Auto) (NEGATIVE) /HPF Urine Culture Reflexed (NO) Urine Glucose (NEGATIVE) mg/dL SARS-CoV-2 (PCR) POSITIVE A (NEGATIVE) 08/24/20 08/24/20 08/24/20 Range/Units 05:05 05:05 05:05 WBC 7.5 (4.0-10.5) K/mm3 RBC 4.44 (4.1-5.6) M/mm3 Hgb 13.0 (12.5-18.0) gm/dl Hct 40.4 L (42-50) % MCV 91.0 (78-100) fl MCH 29.3 (26-32) pg MCHC 32.2 (32-36) g/dl RDW 12.9 (11.5-14.0) % Plt Count 331 (150-450) K/mm3 MPV 9.5 (7.5-11.0) fl Gran % 81.2 H (36.0-66.0) % Eos # (Auto) 0 (0-0.5) Absolute Lymphs (auto) 0.80 L (1.0-4.6) Absolute Monos (auto) 0.60 (0.0-1.3) Lymphocytes % 10.7 L (24.0-44.0) % Monocytes % 8.0 (0.0-12.0) % Eosinophils % 0.0 (0.00-5.0) % Basophils % 0.1 (0.0-0.4) % Absolute Granulocytes 6.06 (1.4-6.9) Basophils # 0.01 (0-0.4) PT 14.4 H (8.83-12.87) SECONDS INR 1.27 (0.8-3.0) D-Dimer 250 (215-500) ng/mL Sodium 138 (137-145) mmol/L Potassium 4.4 (3.5-5.1) mmol/L Chloride 106 (98-107) mmol/L Carbon Dioxide 26 (22-30) mmol/L Anion Gap 11.6 (5-15) MEQ/L BUN 18 (9-20) mg/dL Creatinine 0.74 (0.66-1.25) mg/dL Estimated GFR > 60.0 ML/MIN Glucose 140 H (74-106) mg/dL Calcium 9.0 (8.4-10.2) mg/dL Magnesium (1.6-2.3) mg/dL Total Bilirubin 0.40 (0.2-1.3) mg/dL AST 25 (17-59) U/L ALT 43 (0-50) U/L Alkaline Phosphatase 88 (38-126) U/L Troponin I (0.000-0.034) ng/mL Serum Total Protein 7.0 (6.3-8.2) g/dL Albumin 3.7 (3.5-5.0) g/dL Urine Color (YELLOW) Urine Appearance (CLEAR) Urine pH (5-6) Ur Specific [place]cox (1.005-1.025) Urine Protein (Negative) Urine Ketones (NEGATIVE) Urine Blood (0-5) Chandler/ul Urine Nitrite (NEGATIVE) Urine Bilirubin (NEGATIVE) Urine Urobilinogen (0-1) mg/dL Ur Leukocyte Esterase (NEGATIVE) Urine WBC (Auto) (0-5) /HPF Urine RBC (Auto) (0-2) /HPF U Epithel Cells (Auto) (FEW) /HPF Urine Bacteria (Auto) (NEGATIVE) /HPF Urine Mucus (Auto) (NEGATIVE) /HPF Urine Culture Reflexed (NO) Urine Glucose (NEGATIVE) mg/dL SARS-CoV-2 (PCR) (NEGATIVE) - Radiology Exams Ordered Rad Exams-Entire Visit: Radiology Procedures Category Date Time Status CHEST 1 VIEW (PORTABLE) Stat Exams 08/23/20 13:11 Completed - Procedures and Test Procedures and Tests throughout Hospitalization: Therapy Orders & Screens 08/23/20 14:09 Respiratory Therapy Assessment DAILY Comment: 08/23/20 19:13 Respiratory Therapy Consult ROUTINE Comment: Reason For Exam: 08/23/20 19:58 Respiratory Therapy Assessment DAILY Comment: 08/24/20 06:07 Respiratory MDI UD Comment: Diagnosis: covid - Discharge Disposition: Home, Self-Care Condition: Stable Prescriptions: New Dexamethasone 4 mg PO BID #10 tablet Continue Quinapril HCl [Accupril] 20 mg PO DAILY Simvastatin 40 mg [Zocor 40 mg] 40 mg PO DAILY Fluticasone/Vilanterol [Breo Ellipta 100-25 Mcg INH] 1 inh PO UD PRN PRN Reason: Shortness Of Breath Additional Instructions: stay in home isolation until 09/02/20, return to the ER for shortness of breath, worsening cough, inability to tolerate oral intake, confusion or other problems or concerns. Follow up with: CAYETANO NATH MD [Primary Care Provider] -
[2020-08-24] MEDS ORDERED: PROTONIX 40 MG IV IV SCH (10:00)
[2020-08-24] MEDS ORDERED: ENOXAPARIN SODIUM SQ SCH (10:00)
[2020-08-24] MEDS ORDERED: ROCEPHIN 1 Gm-D5w 50 ml Bag** 1 G/50 ML IVPB IV SCH (10:00)
[2020-08-24 10:08] VITALS: PULSE 65; O2SAT 94
[2020-08-24] MEDS ORDERED: REMDESIVIR 100 MG in Sodium Chloride 0.9% 100 ML IVPB 100 ML IV SCH (22:00)
== END 2020-08-24 11:36 | disposition home or self-care (01) ==
LOC: ED 12:11 → MED SURG 18:59
PROVIDERS: ADMIT Family Medicine; ATTEND Family Medicine
DX: U07.1 COVID-19 (principal); I10 Essential (primary) hypertension; Z79.899 Other long term (current) drug therapy; E78.00 Pure hypercholesterolemia, unspecified
CPT/HCPCS: 36000; 36415; 71045; 80053; 81001; 83735; 84484; 85025; 85379; 85610; 87040; 93005; 93268; 94640; 94762; 96360; 96374; 96375; 99284; G0378; U0003; J0696; J1100; J1650; A9270-GY

== ENCOUNTER 2021-09-06 11:34 | Emergency (ER) | payer BC ==
[2021-09-06] MEDS ORDERED: Sodium Chloride 0.9% 1000 ML 1,000 ML IV STA (11:57)
[2021-09-06] MEDS ORDERED: Zofran 4 MG/2 ML VIAL IV ONE (11:58)
[2021-09-06] MEDS ORDERED: PROTONIX 40 MG IV IV ONE ×2 (11:59→12:03)
[2021-09-06] MEDS ORDERED: Zofran 4 MG/2 ML VIAL ONE (12:02)
[2021-09-06] MEDS ORDERED: Sodium Chloride 0.9% 1000 ML 1,000 ML ONE (12:03)
--- NOTE | 2021-09-06 12:12 | ERPHSYRPT ---
- History of Present Illness Historian: patient Exam Limitations: no limitations Patient Subjective Stated Complaint: pt here for vomiitng since last night unable to keep anything down Triage Nursing Assessment: pt alert, resp easy, face mask in place, skin w/d/p. abd soft Physician History: 55 yo wm w N/V and mild diarrhea x 1 day. Pt has minimal abdominal pain at best. He denies melena/hematochezia/hematemesis/cough/coryza/fever/dysuria/hem aturia/chest pain/dyspnea. Pt had CV19 last year. Timing/Duration: yesterday Activities at Onset: rest Quality: other (No real abdominal pain) Abdominal Pain Onset Location: other (No real abdominal pain) Pain Radiation: no radiation Severity of Pain-Max: none Severity of Pain-Current: none Modifying Factors: Improves With: vomiting. Worsens With: analgesics, antacids, breathing, coughing, defecating, eating, exercise, lying down, movement, palpation, rest, urinating, position, walking Associated Symptoms: diarrhea, heartburn, loss of appetite, vomiting, No back, No chest pain, No diaphoresis, No fever/chills, No fatigue, No headache, No neck pain, No rash, No shortness of breath, No syncope, No testicular pain, No weakness Previous symptoms: no prior history Allergies/Adverse Reactions: levofloxacin [From Levaquin] Allergy (Intermediate, Verified 09/06/21 11:45) Rash red blotches Home Medications: Quinapril HCl [Accupril] 20 mg PO DAILY 10/07/13 [History] Simvastatin 40 mg [Zocor 40 mg] 40 mg PO DAILY 10/07/13 [History] Dupilumab [Dupixent Syringe] 1 ea UD 09/06/21 [History] Hx Tetanus, Diphtheria Vaccination/Date Given: No Hx Influenza Vaccination/Date Given: Yes Hx Pneumococcal Vaccination/Date Given: No Immunizations Up to Date: Yes Travel Risk - International Travel Have you traveled outside of the country in past 3 weeks: No - Coronavirus Screening Are you exhibiting any of the following symptoms?: Yes Symptoms: Vomiting/Diarrhea, Headaches/Body Aches/Fatigue Close contact with a COVID-19 positive Pt in past 14-21 Days: No - Vaccine Status Have you recieved a Covid-19 vaccination: No - Review of Systems Constitutional: No Symptoms Eyes: No Symptoms Ears, Nose, & Throat: No Symptoms Respiratory: No Symptoms Cardiac: No Symptoms, No Chest Pain Abdominal/Gastrointestinal: Nausea, Vomiting, No Abdominal Pain, No Diarrhea, No Constipation, No Hematemesis, No Hematochezia, No Melena, No Dysphagia, No Appetite Changes Genitourinary Symptoms: No Symptoms Musculoskeletal: No Symptoms Skin: No Symptoms Neurological: No Symptoms Psychological: No Symptoms Endocrine: No Symptoms Hematologic/Lymphatic: No Symptoms Immunological/Allergic: No Symptoms - Past Medical History Pertinent Past Medical History: Yes Neurological History: No Pertinent History ENT History: No Pertinent History Cardiac History: High Cholesterol, Hypertension Respiratory History: Asthma Endocrine Medical History: No Pertinent History Musculoskeletal History: No Pertinent History GI Medical History: No Pertinent History History: No Pertinent History Psycho-Social History: No Pertinent History Male Reproductive Disorders: No Pertinent History - Past Surgical History Past Surgical History: Yes Neuro Surgical History: No Pertinent History Cardiac: No Pertinent History Respiratory: No Pertinent History Gastrointestinal: No Pertinent History Genitourinary: No Pertinent History Musculoskeletal: Other Male Surgical History: No Pertinent History Other Surgical History: sinus surgery - Social History Smoking Status: Never smoker Exposure to second hand smoke: No Drug Use: none Patient Lives Alone: No Significant Family History: no pertinent family hx - Nursing Vital Signs Nursing Vital Signs: Initial Vital Signs Temperature 97.3 F 09/06/21 11:47 Pulse Rate 85 09/06/21 11:47 Respiratory Rate 18 09/06/21 11:47 Blood Pressure 173/96 09/06/21 11:47 O2 Sat by Pulse Oximetry 95 09/06/21 11:47 Pain Scale Pain Intensity 0 Hypertensive - Physical Exam General Appearance: no apparent distress Eye Exam: PERRL/EOMI Ears, Nose, Throat Exam: normal ENT inspection, TMs normal, pharynx normal, moist mucous membranes Neck Exam: normal inspection, non-tender, supple, full range of motion Respiratory Exam: normal breath sounds, lungs clear, airway intact, No respiratory distress Cardiovascular Exam: regular rate/rhythm, normal heart sounds, capillary refill <2 sec, No murmur Gastrointestinal/Abdomen Exam: soft, normal bowel sounds, No tenderness, No distention Back Exam: normal inspection, normal range of motion, No CVA tenderness, No vertebral tenderness Extremity Exam: normal inspection, normal range of motion Neurologic Exam: alert, oriented x 3, cooperative, circulating nurse II-XII nml as tested, normal mood/affect, nml cerebellar function, nml station & gait, sensation nml, No motor deficits Skin Exam: normal color, warm, dry Lymphatic Exam: No adenopathy SpO2 Interpretation: normal SpO2: 95 O2 Delivery: Room Air - Course Nursing assessment & vital signs reviewed: Yes Ordered Tests: Active Orders 24 hr Category Date Time Status IV Insertion STAT Care 09/06/21 11:57 Completed CBC W DIFF Stat Lab 09/06/21 11:50 Completed CMP Stat Lab 09/06/21 11:50 Completed COVID AG-BINAX NOW RAPID TEST Stat Lab 09/06/21 12:07 Completed TROPONIN Q3H Lab 09/06/21 11:50 Completed Medication Summary Discontinued Medications Generic Name Dose Route Start Last Admin Trade Name Freq PRN Reason Stop Dose Admin Sodium Chloride 1,000 mls @ 999 mls/hr 09/06/21 11:57 09/06/21 13:05 Sodium Chloride 0.9% 1000 Ml IV 09/06/21 12:57 Infused .Q1H1M STA Infusion Sodium Chloride Confirm 09/06/21 12:03 Sodium Chloride 0.9% 1000 Ml Administered 09/06/21 12:04 Dose 1,000 mls @ ud .ROUTE .STK-MED ONE Ondansetron HCl 4 mg 09/06/21 11:58 09/06/21 12:04 Ondansetron Hcl 4 Mg/2 Ml Vial IV 09/06/21 11:59 4 mg STAT ONE Administration Ondansetron HCl Confirm 09/06/21 12:02 Ondansetron Hcl 4 Mg/2 Ml Vial Administered 09/06/21 12:03 Dose 4 mg .ROUTE .STK-MED ONE Pantoprazole Sodium 40 mg 09/06/21 11:59 09/06/21 12:04 Pantoprazole 40 Mg Vial IV 09/06/21 12:00 40 mg STAT ONE Administration Pantoprazole Sodium Confirm 09/06/21 12:03 Pantoprazole 40 Mg Vial Administered 09/06/21 12:04 Dose 40 mg IV .STK-MED ONE Lab/Rad Data: Laboratory Result Diagrams 09/06/21 11:50 09/06/21 11:50 Laboratory Results 09/06/21 09/06/21 09/06/21 Range/Units 12:07 11:50 11:50 WBC (4.0-10.5) K/mm3 RBC (4.1-5.6) M/mm3 Hgb (12.5-18.0) gm/dl Hct (42-50) % MCV (78-100) fl MCH (26-32) pg MCHC (32-36) g/dl RDW (11.5-14.0) % Plt Count (150-450) K/mm3 MPV (7.5-11.0) fl Gran % (36.0-66.0) % Eos # (Auto) (0-0.5) Absolute Lymphs (auto) (1.0-4.6) Absolute Monos (auto) (0.0-1.3) Lymphocytes % (24.0-44.0) % Monocytes % (0.0-12.0) % Eosinophils % (0.00-5.0) % Basophils % (0.0-0.4) % Absolute Granulocytes (1.4-6.9) Basophils # (0-0.4) Sodium 137 (137-145) mmol/L Potassium 4.1 (3.5-5.1) mmol/L Chloride 99 (98-107) mmol/L Carbon Dioxide 24 (22-30) mmol/L Anion Gap 18.5 H (5-15) MEQ/L BUN 18 (9-20) mg/dL Creatinine 0.89 (0.66-1.25) mg/dL Estimated GFR > 60.0 ML/MIN Glucose 115 H (74-106) mg/dL Calcium 9.3 (8.4-10.2) mg/dL Total Bilirubin 0.90 (0.2-1.3) mg/dL AST 33 (17-59) U/L ALT 53 H (0-50) U/L Alkaline Phosphatase 89 (38-126) U/L Troponin I < 0.012 (0.000-0.034) ng/mL Serum Total Protein 8.1 (6.3-8.2) g/dL Albumin 4.9 (3.5-5.0) g/dL SARS-CoV-2 Ag (Rapid) POSITIVE A* (NEGATIVE) 09/06/21 Range/Units 11:50 WBC 9.9 (4.0-10.5) K/mm3 RBC 5.46 (4.1-5.6) M/mm3 Hgb 16.2 (12.5-18.0) gm/dl Hct 48.8 (42-50) % MCV 89.4 (78-100) fl MCH 29.7 (26-32) pg MCHC 33.2 (32-36) g/dl RDW 13.5 (11.5-14.0) % Plt Count 319 (150-450) K/mm3 MPV 10.0 (7.5-11.0) fl Gran % 76.2 H (36.0-66.0) % Eos # (Auto) 0.10 (0-0.5) Absolute Lymphs (auto) 0.99 L (1.0-4.6) Absolute Monos (auto) 1.26 (0.0-1.3) Lymphocytes % 10.0 L (24.0-44.0) % Monocytes % 12.7 H (0.0-12.0) % Eosinophils % 1.0 (0.00-5.0) % Basophils % 0.1 (0.0-0.4) % Absolute Granulocytes 7.53 H (1.4-6.9) Basophils # 0.01 (0-0.4) Sodium (137-145) mmol/L Potassium (3.5-5.1) mmol/L Chloride (98-107) mmol/L Carbon Dioxide (22-30) mmol/L Anion Gap (5-15) MEQ/L BUN (9-20) mg/dL Creatinine (0.66-1.25) mg/dL Estimated GFR ML/MIN Glucose (74-106) mg/dL Calcium (8.4-10.2) mg/dL Total Bilirubin (0.2-1.3) mg/dL AST (17-59) U/L ALT (0-50) U/L Alkaline Phosphatase (38-126) U/L Troponin I (0.000-0.034) ng/mL Serum Total Protein (6.3-8.2) g/dL Albumin (3.5-5.0) g/dL SARS-CoV-2 Ag (Rapid) (NEGATIVE) - Progress Progress: improved Progress Note: 09/06/21 12:55 1L NS bolus/4mg IV Zofran/40mg IV Protonix Counseled pt/family regarding: lab results, diagnosis, need for follow-up - Departure Departure Disposition: Home Clinical Impression: COVID-19 Condition: Stable Critical Care Time: No Referrals: CAYETANO NATH MD [Primary Care Provider] - Follow up/PCP as directed Instructions: Coronavirus Disease 2019 (COVID-19) (DC) Additional Instructions: Quarantine for 5 days Rest Fluids Zofran for nausea/vomiting VitaminD 10,000units a day Follow up was needed Prescriptions: Ondansetron ODT 4 MG [Zofran Odt 4 mg] 4 mg PO Q6H PRN PRN #10 PRN Reason: Nausea
[2021-09-06 12:18] LABS: Absolute Neutrophil Ct (ANC) 7.53 (1.4-6.9); Basophil (Absolute #) 0.01 (0-0.4); Hematocrit 48.8 % (42-50); Hemoglobin 16.2 gm/dl (12.5-18.0); Lymphocyte (Absolute #) 0.99 (1.0-4.6); Mean Cell Volume 89.4 fl (78-100); Mean Corpuscular Hemoglobin 29.7 pg (26-32); Mean Corpuscular Hgb Concent. 33.2 g/dl (32-36); Monocyte (Absolute #) 1.26 (0.0-1.3); Monocytes % 12.7 % (0.0-12.0); Neutrophil % 76.2 % (36.0-66.0); Platelet Count 319 K/mm3 (150-450); Red Blood Count 5.46 M/mm3 (4.1-5.6); Red Cell Distribution Width 13.5 % (11.5-14.0); White Blood Count 9.9 K/mm3 (4.0-10.5)
[2021-09-06 12:28] LABS: COVID AG -BINAX NOW RAPID TEST POSITIVE (NEGATIVE)
[2021-09-06 12:32] LABS: ALBUMIN 4.9 g/dL (3.5-5.0); ALKALINE PHOSPHATASE 89 U/L (38-126); ANION GAP 18.5 MEQ/L (5-15); BLOOD UREA NITROGEN 18 mg/dL (9-20); CHLORIDE 99 mmol/L (98-107); Calcium 9.3 mg/dL (8.4-10.2); Carbon Dioxide 24 mmol/L (22-30); Creatinine 1 0.89 mg/dL (0.66-1.25); EST GLOMERULAR FILTRATION RATE > 60.0 ML/MIN; Glucose 115 mg/dL (74-106); Potassium 4.1 mmol/L (3.5-5.1); SGOT/AST 33 U/L (17-59); SGPT/ALT 53 U/L (0-50); SODIUM 137 mmol/L (137-145); Total Protein 8.1 g/dL (6.3-8.2)
[2021-09-06 13:05] VITALS: BP 153/102; PULSE 78
[2021-09-06 19:05] VITALS: O2SAT 95
== END 2021-09-06 14:03 | disposition home or self-care (01) ==
LOC: ED 11:34
DX: U07.1 COVID-19 (principal); R11.2 Nausea with vomiting, unspecified; R19.7 Diarrhea, unspecified; Z86.16 Personal history of COVID-19; I10 Essential (primary) hypertension; E78.5 Hyperlipidemia, unspecified; Z79.899 Other long term (current) drug therapy
CPT/HCPCS: 36000; 36415; 80053; 84484; 85025; 96374; 96375; 99000; 99284; J2405